=== PATIENT | male | born 1955 | race Caucasian/White ===

== ENCOUNTER 2017-01-07 06:41 | Emergency (ER) | payer OTHER ==
[2017-01-07 08:34] LABS: HEMOGLOBIN 14.3 gm/dl (14.0-17.5); RED BLOOD COUNT 4.7 M/UL (4.20-5.50); WHITE BLOOD COUNT 14.1 K/UL (4.5-11.0)
[2017-01-07 09:31] LABS: BUN/CREATININE RATIO 13 (0-10)
== END 2017-01-07 12:10 | disposition home or self-care (01) ==
LOC: ER1 06:41
PROVIDERS: Emergency Medicine
DX: M48.56XA Collapsed vertebra, not elsewhere classified, lumbar region, initial encounter for fracture (principal); M51.27 Other intervertebral disc displacement, lumbosacral region; J18.9 Pneumonia, unspecified organism
CPT/HCPCS: 36415; 72131; 80053; 81001; 82272; 83690; 85025; 99284; J1885; Q9962

== ENCOUNTER 2021-06-29 02:43 | Emergency (ER) | payer OTHER | END 2021-06-29 06:03 | disposition home or self-care (01) | LOC: ER1 02:43 | DX: R51.9 Headache, unspecified (principal); J44.9 Chronic obstructive pulmonary disease, unspecified; F17.210 Nicotine dependence, cigarettes, uncomplicated | CPT/HCPCS: 70450; 96374; 96375; 99284; J0780; J1200; J1885; J2270 ==

== ENCOUNTER → 2021-08-30 | Outpatient (CLI) | payer OTHER | LOC: MRI 12:09 | DX: M26.603 Bilateral temporomandibular joint disorder, unspecified (principal) | CPT/HCPCS: 36415; 70336; 82565; 84520 ==

== ENCOUNTER 2021-11-22 18:17 | Inpatient (IN) | payer OTHER ==
[~2021-11-22] VITALS: Ht 175.3 cm; Wt 77.1 kg
[2021-11-22 18:57] LABS: HEMOGLOBIN 13.5 gm/dl (14.0-17.5); RED BLOOD COUNT 4.72 M/UL (4.20-5.50)
[2021-11-22 19:38] LABS: BUN/CREATININE RATIO 13 (0-10)
[2021-11-23] MEDS ORDERED: OMEPRAZOLE20 MG PO (10:02)
[2021-11-23] MEDS ORDERED: HYDROCODON-ACE1 EAC2 PO (10:02)
[2021-11-23] MEDS ORDERED: TYLENOL EXTRA500 MG PO (10:05)
[2021-11-23] MEDS ORDERED: PROAIR HFA8.5 GM INH (10:12)
[2021-11-23] MEDS ORDERED: NEURONTIN400 MG PO (10:12)
[2021-11-23] MEDS ORDERED: BACLOFEN10 MG PO (10:13)
[2021-11-23] MEDS ORDERED: MAGNESIUM OXID420 MG PO (10:13)
[2021-11-23] MEDS ORDERED: ALBUTEROL2.5 MG/3 M INH (10:13)
[2021-11-23] MEDS ORDERED: NORTRIPTYLINE H10 MG PO (10:14)
[2021-11-24 04:06] LABS: HEMOGLOBIN 11.8 gm/dl (14.0-17.5); WHITE BLOOD COUNT 10.1 K/UL (4.5-11.0)
[2021-11-24 04:12] LABS: RED BLOOD COUNT 4.13 M/UL (4.20-5.50)
[2021-11-24 04:18] LABS: BUN/CREATININE RATIO 22 (0-10)
[2021-11-24] MEDS ORDERED: stiolto (08:12)
[2021-11-24] MEDS ORDERED: medrol dose pack (08:12)
[2021-11-24] MEDS ORDERED: TAMIFLU 75 MG C75 MG PO (08:12)
[2021-11-24] MEDS ORDERED: ZITHROMAX250 MG PO (08:12)
[2021-11-24] MEDS ORDERED: tessalon (08:12)
[2021-11-24] MEDS ORDERED: MEDROL DOSEPAK 24 MG PO (09:28)
[2021-11-24] MEDS ORDERED: BENZONATATE200 MG PO (09:30)
[2021-11-24] MEDS ORDERED: STIOLTO RESPIMAT4 GM INH (09:33)
== END 2021-11-24 10:37 | disposition home or self-care (01) | DRG 193 ==
LOC: ER1 18:17 → CDU 20:57 → M/S 20:57
PROVIDERS: Family Medicine; ADMIT Internal Medicine
DX: J10.08 Influenza due to other identified influenza virus with other specified pneumonia (principal); J96.21 Acute and chronic respiratory failure with hypoxia; Z20.822 Contact with and (suspected) exposure to COVID-19; J15.9 Unspecified bacterial pneumonia; K21.9 Gastro-esophageal reflux disease without esophagitis; G44.009 Cluster headache syndrome, unspecified, not intractable; J44.1 Chronic obstructive pulmonary disease with (acute) exacerbation; J44.0 Chronic obstructive pulmonary disease with (acute) lower respiratory infection; F17.200 Nicotine dependence, unspecified, uncomplicated; Z85.828 Personal history of other malignant neoplasm of skin; Z98.890 Other specified postprocedural states; Z79.899 Other long term (current) drug therapy; Z71.6 Tobacco abuse counseling
CPT/HCPCS: 0240U; 36600; 71045; 80048; 80053; 82550; 82553; 82803; 83605; 83735; 83880; 84484; 85025; 85027; 85610; 86140; 87040; 93005; 94640; 94664; 94760; 96374; 99285; J0456; J0696; J1650; J2920; J2930; J7030; J7040

== ENCOUNTER → 2021-12-15 | Outpatient (CLI) | payer OTHER ==
[~2021-12-15] MED LIST: ALBUTEROL2.5 MG/3 M INH; BACLOFEN10 MG PO; BENZONATATE200 MG PO; HYDROCODON-ACE1 EAC2 PO; MAGNESIUM OXID420 MG PO; MEDROL DOSEPAK 24 MG PO; NEURONTIN400 MG PO; NORTRIPTYLINE H10 MG PO; OMEPRAZOLE20 MG PO; PROAIR HFA8.5 GM INH; STIOLTO RESPIMAT4 GM INH; TAMIFLU 75 MG C75 MG PO; TYLENOL EXTRA500 MG PO; ZITHROMAX250 MG PO; medrol dose pack; stiolto; tessalon
== END ==
LOC: HEART 5 10:48
DX: J96.91 Respiratory failure, unspecified with hypoxia (principal)
CPT/HCPCS: 94060; 94729

== ENCOUNTER 2022-03-12 18:39 | Emergency (ER) | payer OTHER ==
[2022-03-12] MEDS ORDERED: PREDNISONE 50 M50 MG PO (19:34)
[2022-03-12 19:57] LABS: HEMOGLOBIN 14.2 gm/dl (14.0-17.5); RED BLOOD COUNT 4.77 M/UL (4.20-5.50); WHITE BLOOD COUNT 9.4 K/UL (4.5-11.0)
[2022-03-12 20:20] LABS: BUN/CREATININE RATIO 10 (0-10)
[2022-03-12] MEDS ORDERED: CIPRO500 MG PO (23:33)
[2022-03-12] MEDS ORDERED: METRONIDAZOLE500 MG PO (23:33)
== END 2022-03-12 23:45 | disposition home or self-care (01) ==
LOC: ER1 18:39
PROVIDERS: Emergency Medicine
DX: U07.1 COVID-19 (principal); J44.1 Chronic obstructive pulmonary disease with (acute) exacerbation; F17.210 Nicotine dependence, cigarettes, uncomplicated
CPT/HCPCS: 71045; 80053; 83605; 83690; 84484; 85025; 93005; 96374; 96375; 99284; J1200; J2930; Q9967